=== PATIENT | male | born 1970 | race Two or more races ===

== ENCOUNTER 2017-01-01 11:45 | Emergency (ER) | payer BC, OTHER ==
[~2017-01-01] VITALS: Ht 165.1 cm; Wt 95.3 kg
[2017-01-01 12:03] VITALS: BP 126/71
[2017-01-01] MEDS ORDERED: IBUPROFEN 600 MG TABLET PO ONE ×2 (12:28→12:30)
--- NOTE | 2017-01-01 13:13 | NUR ---
PLACED 4 INCH ROSS WRAP ON L INJURED ANKLE INSTRUCTED BY CHRISTOPHER HENSLEY
== END 2017-01-01 13:29 | disposition home or self-care (01) ==
LOC: ER 11:47
DX: S93.402A Sprain of unspecified ligament of left ankle, initial encounter (principal); F10.20 Alcohol dependence, uncomplicated; X58.XXXA Exposure to other specified factors, initial encounter; Y93.67 Activity, basketball; Y92.89 Other specified places as the place of occurrence of the external cause; Y99.8 Other external cause status
CPT/HCPCS: 73610; 99284; A4606; Z7610

== ENCOUNTER 2024-04-04 23:21 | Emergency (ER) | payer OTHER ==
[~2024-04-04] VITALS: Ht 170.2 cm; Wt 102.1 kg
[2024-04-05 00:50] VITALS: TEMP 97.8
[2024-04-05] MEDS ORDERED: LIDOCAINE HCL/MPF 1% 30 ML VIAL IJ ONE (01:45)
[2024-04-05] MEDS ORDERED: BUPIVACAINE 0.5 % PF 150 MG/30 ML VIAL ONE (01:45)
[2024-04-05] MEDS ORDERED: HYDROCODONE/APAP 5/325MG TABLET ONE (03:02)
[2024-04-05] MEDS: HYDROCODONE/APAP 5/325MG TABLET PO ONE (03:05)
[2024-04-05] MEDS ORDERED: CEPHALEXIN MONOHYDRATE 500 MG CAPSULE PO ONE (03:13)
[2024-04-05] MEDS: CEPHALEXIN MONOHYDRATE 500 MG CAPSULE PO ONE (03:15)
[2024-04-05] MEDS ORDERED: CEPH500T PO (03:29)
[2024-04-05 04:17] VITALS: BP 138/81; O2SAT 97
== END 2024-04-05 04:17 | disposition home or self-care (01) ==
LOC: ER 23:43
DX: S92.592B Other fracture of left lesser toe(s), initial encounter for open fracture (principal); Z79.899 Other long term (current) drug therapy; W22.8XXA Striking against or struck by other objects, initial encounter; Y93.89 Activity, other specified; Y92.89 Other specified places as the place of occurrence of the external cause; Y99.8 Other external cause status
CPT/HCPCS: 11730; 12001; 73660; 99284; A6407; J3490